=== PATIENT | female | born 1950 | race Two or more races ===

== ENCOUNTER 2017-11-20 13:43 | Outpatient (CLI) | payer OTHER | END 2017-11-20 17:00 | disposition home or self-care (01) | LOC: TOM 13:43 | DX: J45.998 Other asthma (principal) ==

== ENCOUNTER 2017-11-23 05:13 | Day surgery (SDC) | payer OTHER | END 2017-11-23 12:34 | disposition home or self-care (01) | LOC: CIR.AMB 05:13 | DX: L43.8 Other lichen planus (principal) ==